=== PATIENT | male | born 1975 | race Caucasian/White ===

== ENCOUNTER 2023-06-08 04:19 | Emergency (ER) | payer OTHER, SELFPAY ==
[2023-06-08 04:31] VITALS: BP 127/95; BMI 23.1
--- NOTE | 2023-06-08 04:31 | EDRN ---
EDT cleaning pt's superficial cuts
[2023-06-08 05:00] VITALS: BP 113/84
--- NOTE | 2023-06-08 06:08 | ED.SKININJ ---
HPI-Injury
General
Chief Complaint: Self Inflicted Injury
Source: patient and other (2 jail guards accompanying patient.)
Exam Limitations: none
Time Seen by Provider: 06/08/23 05:23
Nursing documentation reviewed up to this point in time: agreed with
Travel History
Have you had any contact with someone who has COVID-19?: No
Do you have any symptoms of coronavirus? Fever > 100 degrees, chills, cough, shortness of breath, sore throat, loss of taste or smell, muscle aches, or headache?: No
History of Present Illness-Injury
Is this injury a work related problem?: No
Initial Injury comments:
This is a 48-year-old gentleman currently incarcerated at [facility] since June 05. He admits to significant depression and despondence since being incarcerated 06/05/23 and although currently on suicide watch at the
jail he was able to secure a razor blade in his shelter cell and proceeded to self-inflict numerous superficial lacerations to bilateral anterior forearms, a few self-inflicted superficial lacerations to bilateral lower legs, right anterior thigh, 1
superficial laceration left lateral neck. He admits to suicide attempt. No history of similar episodes in the past.
He states tetanus booster was 1 and half years ago.
He does have history of daily alcohol use, consumes 10 beers per day.
Currently receiving Klonopin taper regimen for alcohol withdrawal prevention. He denies symptoms of alcohol withdrawal currently.
Prior to entering [facility] he has been on no medications.
He does have history of DVT left lower extremity 1 and half to 2 years ago, was treated with 6-month course of anticoagulant. No history of recurrent DVT. He does admit to intermittent swelling of his left lower leg more so with prolonged
standing. Currently reports no extremity edema.
He has noticed some intermittent left inguinal discomfort over the past few weeks, worse with movement, ambulation but no definitive mass. No testicular/scrotal pain or swelling.
Past History
Past History
ED Past Medical History: Other (DVT left lower extremity treated with 6-month course of anticoagulant)
ED Past Surgical History: Other (Hernia repair)
Social History
Tobacco: Non-smoker
Alcohol: Daily
Drug: None
Living: jail
Family History
Family History: Other (Noncontributory)
Phy Exam
Physical Exam
Physical Exam:
GENERAL: 48-year-old male appears somewhat older than stated age, bright and alert, pleasant, easily communicative, appears in no acute distress. 2 jail guards accompanying.
EYE: The head is normocephalic, atraumatic. Oral mucosa is moist. No rhinorrhea.
NECK: There is 1 very superficial laceration 2 cm in length left lateral neck. Wound is well-approximated. No active bleeding. No soft tissue swelling. The neck is supple, nontender, no meningismus, no significant adenopathy.
ENT: posterior pharynx is clear, oral mucosa is moist. TM clear b/l, nares patent.
CARDIAC: Regular rate and rhythm. no murmur. There are 3 very superficial linear self-inflicted lacerations anterior chest wall, each approximately 10 cm in length. These wounds are superficial, well-approximated. No bleeding. No soft tissue
swelling. No tenderness to palpation.
LUNGS: Clear breath sounds bilaterally, no acute respiratory distress, no wheezes/rales/rhonchi
ABDOMEN: Soft, nondistended, without focal tenderness, no palpable masses. No inguinal tenderness nor palpable mass nor adenopathy. No r/g, no cvat. normoactive BS.
NEUROLOGICAL: Alert and oriented x3, no focal neuro deficits. Gait is steady.
SKIN: Warm and dry, normal color, good turgor. No rash.
MUSCULOSKELETAL: No C/C/E. peripheral pulses are full and equal b/l. No palpable tenderness. Right anterior forearm has 34 superficial lacerations, horizontal/linear in orientation each approximately 4 to 5 cm in length. 2 of these lacerations at
the anterior proximal right forearm are minimally gapped at the mid aspect. There is no active bleeding. No soft tissue swelling.
Left anterior forearm has 25 superficial horizontal linear lacerations approximately 4 cm in length. There are 2 of these lacerations proximal left anterior forearm that have wound edges that are minimally gapped, dermal in depth each approximately
4 cm in length.
The left lower leg mid medial aspect has 2 superficial horizontal lacerations approximately 6 cm in length, wound edges are well-approximated. No active bleeding. No tenderness to palpation.
The right lower leg, mid medial aspect has similar to superficial horizontal lacerations approximately 5 cm in length, wound edges are well-approximated. No active bleeding. No local tenderness. There are additional 2 superficial horizontal
lacerations right proximal anterior thigh, 5 cm in length, wound edges are well-approximated. No active bleeding. No soft tissue swelling nor local tenderness.
PSYCH: Admits to acute frustration and depression due to current incarceration. His ultimate goal is to leave the jail and go home. Although admits to self-inflicted injuries, he admits that his ultimate goal is to survive, live, and leave the
present to go home.
Course
Orders/Labs/Results
Orders:
Orders
06/08/23 06:05
Cephalexin Monohydrate [Keflex] 500 mg PO NOW STA
Vital Signs
Initial and Last Documented VS:
Initial Vital Signs
Temp Pulse Resp BP Pulse Ox
98.2 F 92 16 127/95 100
06/08/23 04:31 06/08/23 04:31 06/08/23 04:31 06/08/23 04:31 06/08/23 04:31
Last Documented Vital Signs
Temp Pulse Resp BP Pulse Ox
98.2 F 91 16 113/84 97
06/08/23 04:31 06/08/23 05:00 06/08/23 04:31 06/08/23 05:00 06/08/23 05:00
Procedures
Laceration Closure
Right Proximal Arm:
Status of Wound: clean
Size of Wound in cm: 3
Description of Wound Edges: sharp
Preparation: cleaned with saline
Revision/Debridement: routine- no revision
Wound exploration: no tendon involvement
Type of Closure: Dermabond-skin glue
Right Middle Anterior Arm:
Status of Wound: clean
Size of Wound in cm: 2
Description of Wound Edges: sharp
Preparation: cleaned with saline
Revision/Debridement: routine- no revision
Wound exploration: explored to base- no FB
Type of Closure: Dermabond-skin glue
Left Anterior Proximal Arm:
Size of Wound in cm: 3
Description of Wound Edges: sharp
Preparation: cleaned with saline
Revision/Debridement: routine- no revision
Wound exploration: explored to base- no FB
Type of Closure: Dermabond-skin glue
Left Anterior Arm:
Status of Wound: clean
Size of Wound in cm: 1
Description of Wound Edges: sharp
Preparation: cleaned with saline
Revision/Debridement: routine- no revision
Wound exploration: explored to base- no FB
Type of Closure: Dermabond-skin glue
MDM/Problems Addressed
Differential Diagnosis Includes:
48-year-old male currently incarcerated at [facility], currently on suicide prevention protocols presents with multiple self-inflicted superficial lacerations to bilateral arms, bilateral legs anterior chest, left neck.
Although numerous lacerations, they are all very superficial, not requiring suture repair.
Four of these superficial lacerations are minimally dermal in depth and wound edges minimally gapped thus repaired with Dermabond wound glue.
All of these wounds have been cleansed with normal saline solution. There is no bleeding of any of the wounds and no evidence of significant blood loss.
Patient is up-to-date with Tdap.
He does admit to self-harm but remains at goal oriented, plans for future once released from jail.
He is being returned to the jail with instructions to continue strict suicide prevention protocols and recommend frequent contraband inspection.
Wounds have been left open as [employer] wrap is contraindicated�a choking/ligature hazard.
He will be placed on a 5-day course of Keflex for infection prevention.
*Pulse Oximetry
Patient hypoxic: no
*Critical Care Note
Total Time (30-74mins, 75-104mins- exclusive of procedures): Not Applicable
ED Attending Note
-
Portions of this chart may have been created with voice recognition software.� Occasional wrong word or��sound alike� substitutions may have occurred due to the inherent limitations of voice recognition software.
Discharge Plan
Departure
Patient Disposition: [facility]
Date of Disposition: 06/08/23
Time of Disposition: 06:08
Patient with high blood pressure during this ER visit?: No
Condition: Good
Discharge Problem:
multiple self-inflicted lacerations
Instructions: Laceration Repair With Glue (DC), Suicide Prevention, Self-Harm (DC)
Prescriptions:
New
cephalexin 500 mg capsule
500 mg PO TID Qty: 15 0RF
Referrals:
[facility] [Family Provider] -
Activity Restrictions/Additional Instructions:
Juni must remain on strict suicide watch/precautions including frequent inspections for contraband.
Keep wounds clean and dry. Recommend cleansing wounds with gentle soap and water once daily.
To wounds on both arms have been repaired with Dermabond wound glue. This wound glue will dry crack and flake off in approximately 7 to 10 days.
A prescription for Keflex 3 times daily for 5 days has been prescribed for infection prevention.
Interventions
Interventions:
*Risk Screen - Suicide Last Done: 06/08/23 04:24
*General Assessment Last Done: 06/08/23 04:24
*Neglect/Abuse Screening Last Done: 06/08/23 04:24
*ED COVID-19 Vaccine History Last Done: 06/08/23 04:24
*Nursing Disposition Last Done: 06/08/23 06:25
ED-Skin Assessment Last Done: 06/08/23 04:34
Discharge Date and Time
Discharge Date/Time: 06/08/23 06:25
[2023-06-08] MEDS: KEFLEX 500 MG PO (06:19)
== END 2023-06-08 06:25 ==
LOC: EMR 04:19
PROVIDERS: EMERGENCY PHYSICIAN Emergency Medicine
DX: S41.111A Laceration without foreign body of right upper arm, initial encounter (principal); S41.112A Laceration without foreign body of left upper arm, initial encounter; Y28.8XXA Contact with other sharp object, undetermined intent, initial encounter; F32.A Depression, unspecified; Z86.718 Personal history of other venous thrombosis and embolism
CPT/HCPCS: 99282; 12002